=== PATIENT | female | born 1945 | race Caucasian/White ===

== ENCOUNTER 2021-08-14 09:38 | Emergency (ER) | payer MEDICARE, BC ==
[~2021-08-14] VITALS: Ht 175.3 cm; Wt 95.9 kg
[~2021-08-14 09:38] MED LIST: CHOL231P PO; ESTR42.53 VG; FLUT1DIS INH; LISI30TA4 PO
[2021-08-14] MEDS ORDERED: ringers solution, lacted 1,000 ML IV ONE (11:05)
[2021-08-14 11:54] LABS: BASOPHILS % (AUTO) 0.1 % (0-1); EOSINOPHILS # (AUTO) 0.1 X10'3 (0-0.9); EOSINOPHILS % (AUTO) 0.5 % (0-6); HEMATOCRIT 27.3 % (35.0-45.0); HEMOGLOBIN 9.2 g/dl (12.0-16.0); LYMPHOCYTES # (AUTO) 0.7 X10'3 (1.1-4.8); LYMPHOCYTES % (AUTO) 2.7 % (21-51); MEAN CORPUSCULAR HGB CONC 33.7 g/dL (33.0-36.5); MEAN CORPUSCULAR VOLUME 97.9 FL (78-98); MEAN PLATELET VOLUME 7.3 FL (7.4-10.4); MONOCYTES # (AUTO) 1.7 X10'3 (0-0.9); MONOCYTES % (AUTO) 6.7 % (2-12); NEUTROPHILS # (AUTO) 22.8 X10'3 (1.8-7.7); PLATELET COUNT 394 X10'3 (140-440); RED BLOOD COUNT 2.79 X10'6 (4.20-5.60); RED CELL DISTRIBUTION WIDTH 13.9 % (11.5-14.5)
[2021-08-14 11:58] LABS: WHITE BLOOD COUNT 25.3 X10'3 (4.5-11.0)
[2021-08-14 12:17] LABS: ALANINE AMINOTRANSFERASE 28 U/L (12-78); ALBUMIN 2.6 G/DL (3.4-5.0); ALBUMIN/GLOBULIN RATIO 0.8 (1.1-1.5); ALKALINE PHOSPHATASE 359 IU/L (46-116); ANION GAP 12 (8-16); ASPARTATE AMINO TRANSFERASE 23 U/L (10-37); BILIRUBIN,TOTAL 0.2 MG/DL (0.1-1.0); BLOOD UREA NITROGEN 39 MG/DL (7-18); BUN/CREATININE RATIO 25.8 (6.6-38.0); CALCIUM 8.3 MG/DL (8.5-10.1); CHLORIDE 102 MMOL/L (99-107); CREATININE 1.51 MG/DL (0.40-0.90); GLUCOSE 95 MG/DL (70-104); POTASSIUM 4.3 MMOL/L (3.5-5.1); SODIUM 136 MMOL/L (135-145); TOTAL CARBON DIOXIDE 21.8 MMOL/L (24-32); TOTAL PROTEIN 5.8 G/DL (6.4-8.2); eGFR 33 ML/MIN
[2021-08-14 12:22] LABS: PLATELET ESTIMATE NORMAL; TOTAL CELLS COUNTED 100
[2021-08-14 12:46] LABS: CLARITY,URINE CLEAR (Clear); GLUCOSE, URINE NEGATIVE (Neg); KETONES,URINE NEGATIVE (Neg); LEUKOCYTE ESTERASE ,URINE NEGATIVE (Neg); NITRITES, URINE NEGATIVE (Neg); OCCULT BLOOD,URINE TRACE-INTACT (Neg); PROTEIN,URINE NEGATIVE (Neg); UROBILINOGEN,URINE 0.2 E.U/dL (0.2-1.0)
[2021-08-14 12:47] LABS: COLOR,URINE STRAW (Yellow); UA COLLECTION TYPE STRAIGHT CATH
[2021-08-14 12:52] LABS: MUCUS STRANDS NONE SEEN /LPF (Neg); RBC,URINE 0-2 /HPF (0-2); RENAL CELLS, URINE FEW /HPF; SQUAMOUS EPITHELIAL CELL,UR NONE SEEN /LPF (FEW); WBC,URINE 0-4 /HPF (0-4)
[2021-08-14 12:53] LABS: BACTERIA,URINE FEW /HPF (Neg)
[2021-08-14 14:50] VITALS: BP 160/72
== END 2021-08-14 14:50 | disposition home or self-care (01) ==
LOC: ER 09:39
DX: D72.829 Elevated white blood cell count, unspecified (principal); R19.7 Diarrhea, unspecified; K51.90 Ulcerative colitis, unspecified, without complications; F41.9 Anxiety disorder, unspecified; Z86.73 Personal history of transient ischemic attack (TIA), and cerebral infarction without residual deficits; Z87.01 Personal history of pneumonia (recurrent); Z79.899 Other long term (current) drug therapy
CPT/HCPCS: 71045; 80053; 81001; 83605; 84145; 85007; 85025; 87040; 93005; 96360; 99285; J7120

== ENCOUNTER 2021-08-17 22:39 | Inpatient (IN) | payer MEDICARE, BC ==
[~2021-08-17] VITALS: Ht 177.8 cm; Wt 81.8 kg
[2021-08-17 23:40] LABS: BASOPHILS % (AUTO) 0.2 % (0-1); LYMPHOCYTES # (AUTO) 0.8 X10'3 (1.1-4.8); MEAN PLATELET VOLUME 7.4 FL (7.4-10.4)
[2021-08-17 23:42] LABS: BASOPHILS # (AUTO) 0.1 X10'3 (0-0.2); EOSINOPHILS % (AUTO) 0.2 % (0-6); LYMPHOCYTES % (AUTO) 3.6 % (21-51); MEAN CORPUSCULAR HEMOGLOBIN 31.9 PG (27.0-31.0); MEAN CORPUSCULAR HGB CONC 32.6 g/dL (33.0-36.5); MEAN CORPUSCULAR VOLUME 97.8 FL (78-98); MONOCYTES # (AUTO) 1.2 X10'3 (0-0.9); MONOCYTES % (AUTO) 5.5 % (2-12); NEUTROPHILS # (AUTO) 19.8 X10'3 (1.8-7.7); NEUTROPHILS % (AUTO) 90.5 % (42-75); PLATELET COUNT 312 X10'3 (140-440); RED BLOOD COUNT 1.98 X10'6 (4.20-5.60); RED CELL DISTRIBUTION WIDTH 14.2 % (11.5-14.5); WHITE BLOOD COUNT 21.8 X10'3 (4.5-11.0)
[2021-08-17 23:46] LABS: HEMOGLOBIN 6.3 g/dl (12.0-16.0)
[2021-08-17 23:47] LABS: HEMATOCRIT 19.4 % (35.0-45.0)
[2021-08-17 23:52] LABS: ALANINE AMINOTRANSFERASE 27 U/L (12-78); ALBUMIN 2.2 G/DL (3.4-5.0); ALBUMIN/GLOBULIN RATIO 0.8 (1.1-1.5); ALKALINE PHOSPHATASE 327 IU/L (46-116); ANION GAP 13 (8-16); ASPARTATE AMINO TRANSFERASE 32 U/L (10-37); BILIRUBIN,TOTAL 0.2 MG/DL (0.1-1.0); BLOOD UREA NITROGEN 55 MG/DL (7-18); BUN/CREATININE RATIO 36.2 (6.6-38.0); CHLORIDE 102 MMOL/L (99-107); CREATININE 1.52 MG/DL (0.40-0.90); GLUCOSE 105 MG/DL (70-104); LIPASE 136 U/L (73-393); SODIUM 135 MMOL/L (135-145); TOTAL CARBON DIOXIDE 20.1 MMOL/L (24-32); TOTAL PROTEIN 5.1 G/DL (6.4-8.2); eGFR 33 ML/MIN
[2021-08-17 23:56] LABS: CALCIUM 7.5 MG/DL (8.5-10.1)
[2021-08-18] VITALS (15 sets, daily range): BP systolic 107–150; BP diastolic 62–75
[2021-08-18] MEDS ORDERED: pantoprazole IV 80 MG in normal saline 100ml IV soln 100 ML IV ONE ×2
[2021-08-18] MEDS ORDERED: pantoprazole 40MG/NS 100ML BAG 100 ML IV ONE
[2021-08-18 00:20] LABS: NUCLEATED RED BLOOD CELLS 3 /100WBC (0-0); PLATELET ESTIMATE NORMAL; TOTAL CELLS COUNTED 100
[2021-08-18 00:22] LABS: POLYCHROMASIA FEW
[2021-08-18] MEDS ORDERED: potassium CL 10mEq/100ml bag 100 ML IV PRN (00:50)
[2021-08-18] MEDS ORDERED: acetaminophen 325mg tablet PO PRN (00:50)
[2021-08-18] MEDS ORDERED: mag hydrox/Alum hydrox/simeth 30ml oral suspension PO PRN (00:50)
[2021-08-18] MEDS ORDERED: magnesium hydroxide 30ml (MOM) UD suspension PO PRN (00:50)
[2021-08-18] MEDS ORDERED: magnesium 4gm in 100ml NS 100 ML IV PRN (00:50)
[2021-08-18] MEDS ORDERED: ondansetron/PF 4mg/2ml inj IV PRN (00:50)
[2021-08-18] MEDS ORDERED: magnesium 2GM in 50ml NS 50 ML IV PRN (00:50)
[2021-08-18 00:52] LABS: APTT 30 SECONDS (22-32)
[2021-08-18] MEDS: morphine 2 MG/ML inj. syringe IV PRN ×3 (01:26→23:30)
[2021-08-18] MEDS ORDERED: APIX5TAB3 PO (01:30)
[2021-08-18] MEDS ORDERED: BUDE0.5A11 NEB (01:32)
[2021-08-18] MEDS ORDERED: IPRA3AMP9 IH (01:32)
[2021-08-18 01:59] LABS: POTASSIUM 4.2 MMOL/L (3.5-5.1)
[2021-08-18] MEDS ORDERED: ipratropium/albuterol 3ml nebule NEB PRN (03:00)
[2021-08-18] MEDS: normal saline 1000ml 1,000 ML IV SCH ×3 (03:41→20:58)
--- NOTE | 2021-08-18 04:21 | NUR ---
CALLED BLOOD BANK ABOUT BLOOD AND IT IS STILL PROCESSING D/T HAVING AN ANTIBODY.
--- NOTE | 2021-08-18 06:46 | NUR ---
Patient medication list from [facility] faxed to pharmacy.
[2021-08-18] MEDS: K and/or MAG REPLACEMENT MC SCH ×2 (06:53→06:54)
[2021-08-18] MEDS ORDERED: PRED20TA PO (06:58)
[2021-08-18] MEDS ORDERED: NICO-731 TOP (06:58)
[2021-08-18] MEDS ORDERED: ASPI81TA52 PO (06:58)
[2021-08-18] MEDS ORDERED: DOCU100C40 PO (06:58)
[2021-08-18] MEDS: docusate sod 100mg capsule PO SCH ×2 (08:00→20:00)
[2021-08-18] MEDS: pantoprazole 40MG/NS 100ML BAG 100 ML IV SCH ×2 (10:19→20:22)
[2021-08-18] MEDS: budesonide 0.5mg/2ml UD nebule IH SCH ×2 (10:32→19:44)
[2021-08-18] MEDS: ipratropium/albuterol 3ml nebule IH PRN ×2 (10:38→19:44)
[2021-08-18 10:58] LABS: HEMATOCRIT 26.2 % (35.0-45.0); MEAN CORPUSCULAR HGB CONC 34.1 g/dL (33.0-36.5); MEAN PLATELET VOLUME 7.4 FL (7.4-10.4); PLATELET COUNT 262 X10'3 (140-440); RED BLOOD COUNT 2.98 X10'6 (4.20-5.60); RED CELL DISTRIBUTION WIDTH 21.7 % (11.5-14.5); WHITE BLOOD COUNT 20.3 X10'3 (4.5-11.0)
--- NOTE | 2021-08-18 12:56 | NUR ---
Patient gives consent to share medical information with Kathy negrete.
--- NOTE | 2021-08-18 12:59 | NUR ---
Patient's niece, Kathy: ; for updates.
--- NOTE | 2021-08-18 13:04 | NUR ---
Dr. Sheppard at bedside.
--- NOTE | 2021-08-18 13:17 | NUR ---
Update from Dr. Sheppard: Patient will have clear liquid diet *no reds; start Golytely at 1600; NPO after midnight; colonoscopy tomorrow. Patient's niece, Kathy called with update.
--- NOTE | 2021-08-18 14:50 | NUR ---
Patient given apple juice and Jell-o; liquid diet food tray faxed to dietary.
[2021-08-18 14:57] LABS: HEMATOCRIT 26.9 % (35.0-45.0); HEMOGLOBIN 8.7 g/dl (12.0-16.0); MEAN CORPUSCULAR HEMOGLOBIN 28.7 PG (27.0-31.0); MEAN CORPUSCULAR HGB CONC 32.2 g/dL (33.0-36.5); PLATELET COUNT 233 X10'3 (140-440); RED BLOOD COUNT 3.02 X10'6 (4.20-5.60); RED CELL DISTRIBUTION WIDTH 22.4 % (11.5-14.5); WHITE BLOOD COUNT 18.9 X10'3 (4.5-11.0)
[2021-08-18] MEDS ORDERED: PEG 3350/Na sulf,bicarb,Cl/KCl oral sol 4 liter bottle PO ONE (17:55)
[2021-08-18 21:27] LABS: HEMATOCRIT 27.5 % (35.0-45.0); HEMOGLOBIN 9.1 g/dl (12.0-16.0); MEAN CORPUSCULAR HEMOGLOBIN 29.2 PG (27.0-31.0); MEAN CORPUSCULAR HGB CONC 33.1 g/dL (33.0-36.5); MEAN CORPUSCULAR VOLUME 88.2 FL (78-98); PLATELET COUNT 250 X10'3 (140-440); RED BLOOD COUNT 3.12 X10'6 (4.20-5.60); RED CELL DISTRIBUTION WIDTH 22.8 % (11.5-14.5); WHITE BLOOD COUNT 21.8 X10'3 (4.5-11.0)
--- NOTE | 2021-08-18 21:30 | NUR ---
Patient in room ED 15. I have received report from MADISON Vázquez and had the opportunity to ask questions and assume patient care. VSS coming up on a bed.
[2021-08-19] VITALS: BP 120/60
[2021-08-19] MEDS: normal saline 1000ml 1,000 ML IV SCH (03:00)
[2021-08-19 03:54] LABS: BASOPHILS # (AUTO) 0.1 X10'3 (0-0.2); BASOPHILS % (AUTO) 0.4 % (0-1); EOSINOPHILS # (AUTO) 0.2 X10'3 (0-0.9); HEMOGLOBIN 8.8 g/dl (12.0-16.0); LYMPHOCYTES # (AUTO) 0.6 X10'3 (1.1-4.8); WHITE BLOOD COUNT 21.1 X10'3 (4.5-11.0)
[2021-08-19 03:56] LABS: EOSINOPHILS % (AUTO) 0.9 % (0-6); HEMATOCRIT 26.4 % (35.0-45.0); LYMPHOCYTES % (AUTO) 2.6 % (21-51); MEAN CORPUSCULAR HEMOGLOBIN 29.5 PG (27.0-31.0); MEAN CORPUSCULAR HGB CONC 33.5 g/dL (33.0-36.5); MEAN CORPUSCULAR VOLUME 88.2 FL (78-98); MONOCYTES # (AUTO) 1.4 X10'3 (0-0.9); MONOCYTES % (AUTO) 6.7 % (2-12); NEUTROPHILS # (AUTO) 18.9 X10'3 (1.8-7.7); NEUTROPHILS % (AUTO) 89.4 % (42-75); PLATELET COUNT 234 X10'3 (140-440); RED BLOOD COUNT 2.99 X10'6 (4.20-5.60); RED CELL DISTRIBUTION WIDTH 22.4 % (11.5-14.5)
[2021-08-19 04:04] LABS: ALANINE AMINOTRANSFERASE 35 U/L (12-78); ALBUMIN 2.3 G/DL (3.4-5.0); ALBUMIN/GLOBULIN RATIO 0.8 (1.1-1.5); ALKALINE PHOSPHATASE 347 IU/L (46-116); ANION GAP 13 (8-16); ASPARTATE AMINO TRANSFERASE 43 U/L (10-37); BILIRUBIN,TOTAL 0.5 MG/DL (0.1-1.0); BLOOD UREA NITROGEN 53 MG/DL (7-18); BUN/CREATININE RATIO 34.4 (6.6-38.0); CALCIUM 7.9 MG/DL (8.5-10.1); CHLORIDE 105 MMOL/L (99-107); CREATININE 1.54 MG/DL (0.40-0.90); GLUCOSE 101 MG/DL (70-104); MAGNESIUM 1.7 MG/DL (1.5-2.4); PHOSPHORUS 4.1 MG/DL (2.3-4.5); POTASSIUM 3.7 MMOL/L (3.5-5.1); SODIUM 137 MMOL/L (135-145); TOTAL CARBON DIOXIDE 19.5 MMOL/L (24-32); TOTAL PROTEIN 5.2 G/DL (6.4-8.2); eGFR 33 ML/MIN
[2021-08-19 05:00] LABS: ANISOCYTOSIS 3+; NUCLEATED RED BLOOD CELLS 2 /100WBC (0-0); PLATELET ESTIMATE NORMAL; TOTAL CELLS COUNTED 100
[2021-08-19 05:01] LABS: POLYCHROMASIA FEW; SCHISTOCYTES FEW
--- NOTE | 2021-08-19 05:42 | NUR ---
Pt has worsening edema on the Rt lower foot. Rt foot darker purple in color than when first arrived on floor. Pt has palpable pulses. Dr Mcclain was called and ordered a vascular ultrasound of the lower extremities.
--- NOTE | 2021-08-19 06:43 | NUR ---
Problems reprioritized. Patient report given, questions answered & plan of care reviewed with MADISON Castelan.
--- NOTE | 2021-08-19 07:37 | NUR ---
Message: Eli Mahmood [id number] Pt. refusing colonoscopy stating, "I'm done with it." Demanding coffee or she will "call her doctor directly". Pt. current diet orders NPO. Here for GI bleed. Annelise [id number]
[2021-08-19 08:00] VITALS: BP 157/67
[2021-08-19] MEDS ORDERED: nicotine 14mg patch - 24hr TD SCH (08:00)
[2021-08-19] MEDS: K and/or MAG REPLACEMENT MC SCH (08:00)
--- NOTE | 2021-08-19 08:30 | NUR ---
Pt. refusing NPO diet. Demanding coffee and snacks. MD already aware. Pt. given extensive education on how this could negatively affect pt's health further. Pt states, "that's ok. I already know my health issues. I'm just gonna lay here and ."
--- NOTE | 2021-08-19 09:21 | NUR ---
Message: Eli Mahmood [id number] Pt's VL US positive for DVTS. Annelise [id number]
[2021-08-19] MEDS: docusate sod 100mg capsule PO SCH (09:33)
[2021-08-19] MEDS: pantoprazole 40MG/NS 100ML BAG 100 ML IV SCH (09:34)
--- NOTE | 2021-08-19 09:44 | NUR ---
Still waiting on response from hospitalist for both pages.
[2021-08-19] MEDS: budesonide 0.5mg/2ml UD nebule IH SCH (09:45)
--- NOTE | 2021-08-19 10:42 | NUR ---
Hospitalist rounded on floor. Discussed POC with pt. Pt. refusing colonoscopy and other treatments. Stating "she is so tired". She is aware of DVTS and cancer. She wants to transfer back to her SNF today. CM aware.
[2021-08-19] MEDS: morphine 2 MG/ML inj. syringe IV PRN (10:59)
[2021-08-19 11:00] VITALS: BP 152/65
--- NOTE | 2021-08-19 12:10 | NUR ---
Per CM pt. to go back to SNF around 3pm
--- NOTE | 2021-08-19 13:32 | NUR ---
Called and gave report to Debra WALLACE at [facility][note 3].
--- NOTE | 2021-08-19 15:12 | NUR ---
Pt. left. Discharge back to [facility]. Riley Huffman aware. Jean aware.
== END 2021-08-19 14:53 | DRG 378 ==
LOC: ER 22:39 → ED HOLD 08-18 00:54 → SUR 3N 08-18 22:00
PROVIDERS: ADMIT Internal Medicine; ATTEND Family Medicine
PROC: 30233N1 Transfusion of Nonautologous Red Blood Cells into Peripheral Vein, Percutaneous Approach (ICD-10-PCS; principal; 2021-08-18)
DX: K92.1 Melena (principal); D62 Acute posthemorrhagic anemia; F41.9 Anxiety disorder, unspecified; G62.9 Polyneuropathy, unspecified; J44.9 Chronic obstructive pulmonary disease, unspecified; N18.9 Chronic kidney disease, unspecified; Z86.711 Personal history of pulmonary embolism; Z86.73 Personal history of transient ischemic attack (TIA), and cerebral infarction without residual deficits; Z86.718 Personal history of other venous thrombosis and embolism; Z79.899 Other long term (current) drug therapy
CPT/HCPCS: 36415; 36430; 73630; 80053; 83690; 83735; 84100; 84132; 85007; 85025; 85027; 85610; 85730; 86870; 86885; 86900; 86901; 86902; 86905; 86922; 87081; 93970; 94640; 94760; 96374; 99285; C9113; G0378; J2270; J3490; J7030; P9016